=== PATIENT | male | born 1960 | race Caucasian/White ===

== ENCOUNTER 2019-04-17 05:41 | Inpatient (IN) | payer BC ==
[~2019-04-17] VITALS: Ht 188 cm; Wt 108.9 kg
--- NOTE | ~2019-04-17 | OP ---
[facility] [address] [place] [address] OPERATIVE REPORT Name: ANTONY CELESTIN Room: [address] IN M.R.#: [id number] Admission: 04/17/19 Attend Phys: Thu Dillard Discharge: Date of : 56 Report #: [id number] THIS REPORT FOR: //name// CC: Tato Padilla DATE OF SERVICE: 04/17/2019 PREOPERATIVE DIAGNOSES: Right ureteral calculus and flank pain. POSTOPERATIVE DIAGNOSES: Right ureteral calculus and flank pain. PROCEDURES: Cystoscopy, right retrograde pyelogram, right ureteroscopy, laser lithotripsy, stone extraction, stent placement. SURGEON: Grant Ferrara M.D. ANESTHESIA: General. ESTIMATED BLOOD LOSS: None. DRAINS: A 6 x 28 right ureteral stent. SPECIMENS: Stone fragments. COMPLICATIONS: None. INDICATIONS: This is a 58-year-old gentleman admitted with right flank pain. Noncontrast CT scan reveals nonobstructing bilateral renal calculi as well as right hydroureteronephrosis and a 5 mm right distal ureteral calculus. Alternatives for management were discussed. He has elected to undergo cystoscopy, right retrograde pyelogram, right ureteroscopy, laser lithotripsy, stone extraction, stent placement. Risks of procedure were explained including but not limited to bleeding, infection, anesthesia, cardiopulmonary and vascular events, injury to urethra, bladder, ureter, possible development of strictures, stent discomfort, risks and potential complications of a stent, possible need for further stone procedures. We discussed the need for timely followup regarding any stent left in place. He voices clear understanding of all this and wants to proceed. DESCRIPTION OF PROCEDURE: The patient was pretreated with IV Rocephin. After induction of general anesthesia, he was positioned, prepped and draped in the lithotomy position. Timeout procedure was performed. Cystourethroscopy was performed. The anterior urethra was normal. There is bilateral lobe impingement from benign appearing tissue in the prostatic urethra. The bladder was entered and systematically examined. The ureteral [place]ific[place] [address] OPERATIVE REPORT Name: ANTONY CELESTIN Room: [address] IN .R.#: [id number] Admission: 04/17/19 Attend Phys: Thu Dillard Discharge: Date of : 56 Report #: [id number] There were no intravesical stones or lesions. No blood is seen from either ureter. A 5-Georgian ureteral catheter was used to perform a right retrograde pyelogram, which reveals a filling defect in the distal ureter with dilation of the ureter and renal pelvis proximally. Catheter was removed and a sensor wire was advanced per the right ureter and into the renal pelvis with fluoroscopic guidance. Scope was removed leaving the wire in place. A semirigid ureteroscope was advanced alongside the wire and into the ureter. This passed easily to the level of the stone with gravity irrigation. The wire was noted coursing up the ureter. Stone was engaged with a 272 micron holmium laser fiber and laser lithotripsy was performed. The stone broke up nicely at 6.4 reilly. Care was taken to avoid injury to the ureter and the wire. Fragments were extracted with a 0 tip basket. This process was continued until there were no remaining stone fragments in the ureter. The scope was advanced several centimeters proximally and no other ureteral abnormalities were noted except for edema at the prior location of the stone. The scope was withdrawn with visual guidance, leaving the wire in place. The wire was loaded on to the cystoscope and used for placement of a 6 x 28 right ureteral stent with good position confirmed in the renal pelvis fluoroscopically and in the bladder visually. Lidocaine jelly was given per urethra. The patient tolerated the procedure well and was taken to the recovery room in stable condition. Plan will be to obtain a repeat radiograph in approximately 1-2 weeks and remove his stent if it does not show any significant residual fragments. By: [id number] Ferrara MD /joi
[2019-04-17 05:48] VITALS: BP 135/89
[2019-04-17] MEDS ORDERED: VENLAFAXINE HC150 M1 PO (05:55)
[2019-04-17] MEDS ORDERED: TOPROL XL50 MG PO (05:55)
[2019-04-17] MEDS ORDERED: ADCIRCA20 MG PO (05:55)
[2019-04-17] MEDS ORDERED: FLUTICASONE PRO30 G1 TOP (05:56)
[2019-04-17] MEDS ORDERED: OMEPRAZOLE20 M1 PO (05:56)
[2019-04-17] MEDS ORDERED: FLOMAX0.4 MG PO (05:56)
[2019-04-17 06:07] LABS: ABSOLUTE BASOPHILS 0.1 thou/uL (0.0-0.2); ABSOLUTE EOSINOPHILS 0.2 thou/uL (0.0-0.7); ABSOLUTE LYMPHOCYTES 3.7 thou/uL (0.8-5.3); ABSOLUTE MONOCYTES 0.6 thou/uL (0.0-1.2); ABSOLUTE NEUTROPHILS 4.2 thou/uL (1.6-8.1); BASOPHILS 0.7 %; EOSINOPHILS 2.3 %; LYMPHOCYTES 42.2 %; MCH 31.8 pg (26.0-34.0); MCHC 34.1 g/dL (28.0-37.0); MCV 93.1 fL (80.0-100.0); MPV 7.4 fl. (7.2-11.1); NUCLEATED RBCS 0 /100WBC; PLATELET COUNT* 245 thou/uL (150-400); POLYS 47.8 %; RBC 4.73 mil/uL (4.50-6.00); RDW-CV 12.9 % (10.5-14.5); WBC 8.9 thou/uL (4.0-11.0)
[2019-04-17 06:14] LABS: CREATININE 1.2 mg/dL (0.6-1.3); POTASSIUM 3.7 mmol/L (3.5-5.1)
[2019-04-17 06:51] LABS: URINE BILIRUBIN NEGATIVE (Negative); URINE BLOOD 3+ (Negative); URINE CLARITY CLEAR; URINE COLOR YELLOW; URINE GLUCOSE-RANDOM NEGATIVE (Negative); URINE KETONES NEGATIVE (Negative); URINE LEUKOCYTES-REFLEX NEGATIVE (Negative); URINE NITRITE-REFLEX NEGATIVE (Negative); URINE PROTEIN NEGATIVE (Negative); URINE SPECIFIC GRAVITY >= 1.030 (1.005-1.030); URINE UROBILINOGEN 0.2 E.U./dl (0.2-1.0)
[2019-04-17 07:04] LABS: BACTERIA-REFLEX 1-9 Few /HPF (None Seen); CASTS None Seen /LPF (None Seen); CRYSTALS None Seen /LPF (None Seen); MUCUS None Seen strn/LPF (None Seen); SQUAMOUS 0-3 Few /LPF (0-3); URINE WBC-REFLEX 0-5 Rare /HPF (0-5)
[2019-04-17 09:47] VITALS: BP 135/89
--- NOTE | 2019-04-17 11:04 | EKG ---
[place] [address] ELECTROCARDIOGRAM REPORT Name: SABI,ANTONY JENNIFER Room: [place] [address] ADM IN M.R.#: [id number] Admission: 04/17/19 Attend Phys: Thu Dillard Discharge: Date of : 56 Report #: [id number] THIS REPORT FOR: //name// [facility] Test Date: 2019-04-17 Test Time: 10:21:31 Pat Name: ANTONY CELESTIN Department: Room: [place] [address] Gender: M Ch[place] Boss: : 1960 Requested By: Grant Ferrara Order Number: [id number] James MD: Raymond Chaidez Measurements Intervals [place] Rate: 78 P: 40 VA: 155 QRS: 35 QRSD: 93 T: 26 QT: 370 QTc: 422 Interpretive Statements Sinus rhythm Abnormal R-wave progression, early transition No previous ECG available for comparison Electronically Signed On 04-17-2019 11:04:23 GOLF STUD RIVETER by Raymond Chaidez [email or web address] <ELECTRONICALLY SIGNED> By: Raymond Chaidez MD, [facility] 04/17/19 1104 1021 1021 Raymond Chaidez MD, FACC /EPI
[2019-04-17 13:10] VITALS: BP 114/83
[2019-04-17 15:06] VITALS: BP 114/83
--- NOTE | 2019-04-17 15:36 | NUR ---
PT. ARRIVED PER BED TO ROOM 112 FROM PACU. ALERT ORIENTED PLEASANT COOPERATIVE HX OF KIDNEY STONES WITH STENT PLACEMENT AND LITHOTRIPSY. PT. RATES PAIN A 3 ON PAIN SCALE LOWER QUADRANT RT. SIDE. UP TO BR TO VOID HAS VOIDED SEVERAL TIMES SINCE ARRIVING ON UNIT URINE BLOOD TINGED. EATING LATE LUNCH OF SALAD. IV FLUIDS HOOKED ON SL L ANTECUBITAL NS AT 100CC/HR. ORIENTED TO ROOM AND ROUTINE ASSESSMENT COMPLETED.
[2019-04-17 16:52] VITALS: BP 116/84
--- NOTE | 2019-04-17 19:04 | NUR ---
PT. HAS BEEN VOIDING QUANTITY SUFFICENT BLOOD TINGED URINE IN TOILET AND URINAL. GAVE 1 HYDROCODONE FOR RT. LOWER QUANDRANT PAIN WITH RELIEF STATED. APPETITE GOOD AT SUPPER.
[2019-04-17 19:45] VITALS: BP 111/70
[2019-04-18] VITALS: BP 108/63
[2019-04-18 03:50] VITALS: BP 99/53
[2019-04-18 04:49] LABS: ABSOLUTE LYMPHOCYTES 2.2 thou/uL (0.8-5.3); ABSOLUTE MONOCYTES 0.9 thou/uL (0.0-1.2); ABSOLUTE NEUTROPHILS 6.8 thou/uL (1.6-8.1); BASOPHILS 0.1 %; EOSINOPHILS 0.1 %; HEMATOCRIT 41.3 % (42.0-52.0); HEMOGLOBIN 13.9 gm/dL (14.0-18.0); LYMPHOCYTES 22.2 %; MCH 31.8 pg (26.0-34.0); MCHC 33.7 g/dL (28.0-37.0); MCV 94.4 fL (80.0-100.0); MONOCYTES 9.4 %; MPV 7.8 fl. (7.2-11.1); NUCLEATED RBCS 0 /100WBC; PLATELET COUNT* 222 thou/uL (150-400); POLYS 68.2 %; RBC 4.38 mil/uL (4.50-6.00); RDW-CV 12.8 % (10.5-14.5)
[2019-04-18 04:52] LABS: CALCIUM 8.4 mg/dL (8.5-10.1); CREATININE 1.1 mg/dL (0.6-1.3)
[2019-04-18 05:05] LABS: POTASSIUM 4.9 mmol/L (3.5-5.1)
[2019-04-18 08:00] VITALS: BP 127/81
--- NOTE | 2019-04-18 08:00 | NUR ---
PATIENT HAS SLEPT WELL THROUGHOUT THE NIGHT. VSS ON RA. NO C/O PAIN. MEDICATIONS GIVEN ORDERED AND CHARTED. STRAINING URINE AND NO STONES NOTED. IV IN LEFT AC-NS @ 100ML/HR. PATIENT INSTRUCTED TO USE CALL LIGHT WHEN NEEDING ASSISTANCE. HOURLY ROUNDS MADE. WILL CONTINUE WITH PLAN OF CARE AND NURSING TO MONITOR.
[2019-04-18] MEDS ORDERED: NORCO 5-325 TA1 EAC1 PO (08:19)
[2019-04-18] MEDS ORDERED: HYOSCYAMINE0.125 MG PO (08:20)
[2019-04-18 08:25] VITALS: BP 114/83
== END 2019-04-18 11:20 | disposition home or self-care (01) | DRG 661 ==
LOC: M.ERS 05:41 → M.ORTHSURG 07:01 → M.TBA-ER 07:01 → M.ORTHSURG 13:05
PROVIDERS: Emergency Medicine; Internal Medicine; ADMIT Family Medicine
PROC: 0T768DZ Dilation of Right Ureter with Intraluminal Device, Via Natural or Artificial Opening Endoscopic (ICD-10-PCS; principal; 2019-04-17)
PROC: 0TC68ZZ Extirpation of Matter from Right Ureter, Via Natural or Artificial Opening Endoscopic (ICD-10-PCS; principal; 2019-04-17)
PROC: BT1D1ZZ Fluoroscopy of Right Kidney, Ureter and Bladder using Low Osmolar Contrast (ICD-10-PCS; principal; 2019-04-17)
DX: N13.2 Hydronephrosis with renal and ureteral calculous obstruction (principal); I10 Essential (primary) hypertension; N40.0 Benign prostatic hyperplasia without lower urinary tract symptoms; R31.29 Other microscopic hematuria; Z79.899 Other long term (current) drug therapy